=== PATIENT | female | born 1950 | race Caucasian/White ===

== ENCOUNTER 2017-09-20 18:47 | Emergency (ER) | payer OTHER ==
[~2017-09-20] VITALS: Wt 90.7 kg
[~2017-09-20 18:47] MED LIST: AUGMENTIN 875 M1 TA1 PO; AUGMENTIN 875 M1 TAB PO; CHOLESTEROL PILL; MOTRIN600 MG PO; MOTRIN800 MG PO; THYROID; WATER PILL; WELLBUTRIN75 MG PO
[2017-09-20] MEDS ORDERED: SYNTHROID,LEVO88 MCG PO (18:55)
[2017-09-20] MEDS ORDERED: PRINIVIL10 MG PO (18:56)
[2017-09-20] MEDS ORDERED: ULTRAM50 MG PO (18:57)
[2017-09-20] MEDS ORDERED: ZOCOR20 MG PO (18:57)
[2017-09-20] MEDS ORDERED: METFORMIN500 MG PO (18:58)
[2017-09-20 19:34] LABS: BASO % 0.4 % (0.0-1.0); EOS # 0.1 10*3/uL (0.0-0.4); EOS % 1.5 % (1.0-4.0); HEMATOCRIT 40.2 % (37.0-47.0); HEMOGLOBIN 13.5 g/dl (12.0-16.0); LYMPH # 1.7 10*3/uL (1.3-4.4); LYMPH % 18.1 % (27.0-41.0); MEAN CELL VOLUME 87.4 fl (81.0-99.0); MEAN CORPUSCULAR HGB 29.3 pg (27.0-31.0); MEAN CORPUSCULAR HGB CONC 33.6 g/dl (33.0-37.0); MEAN PLATELET VOLUME 10.3 fl (9.6-12.3); MONO # 1.2 10*3/uL (0.1-1.0); NEUT # 6.5 10*3/uL (2.3-7.9); NEUT % 67.8 % (47.0-73.0); PLATELET COUNT AUTOMATED 259 10*3/uL (130-400); RED CELL DISTRI WIDTH 13.3 % (0-14.5); WHITE BLOOD COUNT 9.6 10*3/uL (4.8-10.8)
[2017-09-20 19:50] LABS: ALBUMIN 3.7 gm/dl (3.1-4.5); ALKALINE PHOSPHATASE 109 U/L (45-117); BUN 11 mg/dl (7-24); CHLORIDE 100 mmol/L (98-107); CREATININE 0.71 mg/dL (0.55-1.02); POTASSIUM 3.5 mmol/L (3.5-5.1); SGOT/AST 14 IU/L (3-35); SGPT/ALT 21 U/L (12-78); SODIUM 139 mmol/L (136-145); TOTAL PROTEIN 7.2 gm/dL (6.4-8.2)
[2017-09-20 20:02] VITALS: BP 148/57
[2017-09-20] MEDS ORDERED: CLINDAMYCIN HC300 MG PO (20:24)
[2017-09-20] MEDS ORDERED: KETOROLAC10 MG PO (20:24)
== END 2017-09-20 20:37 | disposition home or self-care (01) ==
LOC: ED 18:47
PROVIDERS: Nurse Practitioner
DX: K11.8 Other diseases of salivary glands (principal); Z90.49 Acquired absence of other specified parts of digestive tract; Z79.899 Other long term (current) drug therapy; Z88.6 Allergy status to analgesic agent